=== PATIENT | male | born 1970 | race Caucasian/White ===

== ENCOUNTER 2024-03-30 06:26 | Day surgery (SDC) | payer OTHER, SELFPAY ==
[2024-03-30 07:53] LABS: Glucose - Point of Care 155 mg/dl (70-99)
== END 2024-03-30 09:45 | disposition home or self-care (01) ==
LOC: GI 06:26
PROVIDERS: ATTENDING PHYSICIAN Internal Medicine Gastroenterology
DX: Z12.11 Encounter for screening for malignant neoplasm of colon (principal); K64.0 First degree hemorrhoids; K57.30 Diverticulosis of large intestine without perforation or abscess without bleeding; D12.3 Benign neoplasm of transverse colon; D12.4 Benign neoplasm of descending colon; D12.5 Benign neoplasm of sigmoid colon; K63.5 Polyp of colon; K62.1 Rectal polyp; Z98.890 Other specified postprocedural states
CPT/HCPCS: 45385; 45380; 88305; 82962

== ENCOUNTER → 2024-06-04 07:25 | Outpatient (REF) | payer OTHER, SELFPAY ==
--- NOTE | 2024-06-04 08:24 | CARDSERVLU ---
Echocardiogram with Lumason completed after protocol screening completed. Allergies verified.
Patent IV site: _Right hand 22 G PC inserted by _Court Hernandez RN___
IV site flushed with 0.9% NaCl pre and post administration.
Diluted bolus method utilized to enhance visualization of ventricular rodriguez.
Total volume given: _3___ mL
Patient tolerated all procedures well without complications.
Heplock D/c ed at 0823, site clear, no redness, no edema. Pressure held, no bleeding, 2x2 applied and taped. Pt offers no complaints.
== END ==
LOC: RCS 07:25
PROVIDERS: ATTENDING PHYSICIAN Internal Medicine Cardiovascular Disease; FAMILY PHYSICIAN Family Medicine
DX: I42.8 Other cardiomyopathies (principal); I44.7 Left bundle-branch block, unspecified
CPT/HCPCS: 93306; Q9950

== ENCOUNTER → 2025-04-07 07:18 | Outpatient (REF) | payer OTHER, SELFPAY | LOC: HWRCS 07:18 | PROVIDERS: ATTENDING PHYSICIAN Internal Medicine Cardiovascular Disease; FAMILY PHYSICIAN Family Medicine | DX: I44.7 Left bundle-branch block, unspecified (principal); I42.8 Other cardiomyopathies | CPT/HCPCS: 93306 ==